=== PATIENT | male | born 1980 | race Caucasian/White ===

== ENCOUNTER 2021-08-12 18:51 | Emergency (ER) | payer OTHER, SELFPAY ==
[~2021-08-12] VITALS: Ht 188 cm; Wt 84.5 kg
[2021-08-12] MEDS ORDERED: NAPR220C14 PO (19:22)
[2021-08-12] MEDS ORDERED: NS 1,000 ML IV ONE (22:30)
[2021-08-12] MEDS ORDERED: CLINDAMYCIN 900 MG in IV 1 EA IV ONE (22:30)
[2021-08-12] MEDS ORDERED: ISOVUE-370 76% 100ML VIAL As Ordered ONE (22:52)
[2021-08-12 23:15] LABS: BASO # 0.1 10^3/uL (0.0-0.2); BASO % 0.4 % (0.0-1.0); EOS # 0.2 10^3/uL (0.0-0.5); EOS % 0.9 % (0.0-3.0); HEMATOCRIT 41.4 % (42.0-52.0); HEMOGLOBIN 13.2 g/dl (13.5-17.5); LYMPH % 10.9 % (24.0-44.0); MEAN CORPUSCULAR HEMOGLOBIN 29.3 pg (27.0-33.0); MEAN CORPUSCULAR HGB CONC 31.9 g/dl (32.0-36.5); MONO # 1.7 10^3/uL (0.0-0.8); MONO % 9.3 % (2.0-8.0); NEUTROPHILS # 13.8 10^3/uL (1.5-8.5); NEUTROPHILS % 76.2 % (36.0-66.0); PLATELET COUNT, AUTOMATED 338 10^3/uL (150-450); WHITE BLOOD COUNT 18.1 10^3/uL (4.0-10.0)
--- OUTSIDE RECORDS SUMMARY | 2021-08-12 23:24 | CCD ---
Author Author [facility] Organization [facility] Address Unknown Phone Unavailable Support Name Relationship Address Phone UE Next Of Kin Unknown Unavailable BRANDY FLOYD Next Of Kin [address] [place] [address] [facility] [address] Next [place] [address] [place] [address] ISAMARSHASTA MUNOZ Next Of Kin [address] , [place] ROSARIO JOHNS Next Of Kin Unknown Re-disclosure Warning The records that you are about to access may contain information from federally-assisted alcohol or drug abuse programs. If such information is present, then the following federally mandated warning applies: This information has been disclosed to you from records protected by federal confidentiality rules (42 CFR part 2). The federal rules prohibit you from making any further disclosure of this information unless further disclosure is expressly permitted by the written consent of the person to whom it pertains or as otherwise permitted by 42 CFR part 2. A general authorization for the release of medical or other information is NOT sufficient for this purpose. The Federal rules restrict any use of the information to criminally investigate or prosecute any alcohol or drug abuse patient.The records that you are about to access may contain highly sensitive health information, the redisclosure of which is protected by Article 27-F of the [facility] Public Health law. If you continue you may have access to information: Regarding HIV / AIDS; Provided by facilities licensed or operated by the [facility] Office of Mental Health; or Provided by the [facility] Office for People With Developmental Disabilities. If such information is present, then the following [facility] mandated warning applies: This information has been disclosed to you from confidential records which are protected by state law. State law prohibits you from making any further disclosure of this information without the specific written consent of the person to whom it pertains, or as otherwise permitted by law. Any unauthorized further disclosure in violation of state law may result in a fine or alf sentence or both. A general authorization for the release of medical or other information is NOT sufficient authorization for further disc losure. Medications No Information Insurance Providers Payer name Policy type / Coverage type Policy ID Covered democrat ID Covered democrat's relationship to jung Policy Jung Plan Information FOR LIFE [id number] DO NOT USE [id number] Problems, Conditions, and Diagnoses No Information Surgeries/Procedures No Information Results No Information Social History No Information
--- NOTE | 2021-08-13 00:40 | REPVR ---
PROCEDURE INFORMATION: Exam: CT Pelvis With Contrast Exam date and time: 08/12/2021 12:03 AM Age: 40 years old Clinical indication: Abdominal pain; Right lower quadrant; Additional info: Abscess right groin TECHNIQUE: Imaging protocol: Computed tomography images of the pelvis with intravenous contrast. Radiation optimization: All CT scans at this facility use at least one of these dose optimization techniques: automated exposure control; mA and/or kV adjustment per patient size (includes targeted exams where dose is matched to clinical indication); or iterative reconstruction. Contrast material: ISO 370; Contrast volume: 100 ml; Contrast route: INTRAVENOUS (IV); COMPARISON: No relevant prior studies available. FINDINGS: Stomach and bowel: Visualized small bowel and colon are unremarkable. Appendix: No evidence of appendicitis. Intraperitoneal space: Unremarkable. No free air. No significant fluid collection. Lymph nodes: Adjacent fat stranding and numerous small lymph nodes. Urinary bladder: Normal. No mass. Reproductive: Normal as visualized. Bones/joints: Unremarkable. No acute fracture. No dislocation. Soft tissues: Right groin rim enhancing fluid collection measuring 5.6 x 3 x 7.4 cm. Evidence for abscess. IMPRESSION: Right groin rim enhancing fluid collection measuring 5.6 x 3 x 7.4 cm. Evidence for abscess. Adjacent fat stranding and numerous small lymph nodes. Electronically signed by: Luis Aldana On 08/13/2021 00:40:00 AM
[2021-08-13] MEDS ORDERED: LIDOCAINE 1% MDV 20ML VIAL SC ONE (01:05)
[2021-08-13] MEDS ORDERED: DERMABOND TOPICAL SKIN ADHESIVE TOP ONE (01:50)
[2021-08-13] MEDS ORDERED: HYDR25OI TOP (02:02)
[2021-08-13] MEDS ORDERED: CEPH500C PO (02:02)
[2021-08-13 02:31] VITALS: BP 116/58
[2021-08-14] MEDS ORDERED: CEPH500C PO (20:29)
== END 2021-08-13 02:41 | disposition home or self-care (01) ==
LOC: M ED 18:51
DX: M79.81 Nontraumatic hematoma of soft tissue (principal); L02.214 Cutaneous abscess of groin; F17.200 Nicotine dependence, unspecified, uncomplicated; Z91.040 Latex allergy status
CPT/HCPCS: 10060; 72193; 80047; 83605; 85025; 87040; 96361; 96365; 99284; Q9967

== ENCOUNTER 2021-08-14 16:56 | Inpatient (IN) | payer OTHER, SELFPAY ==
[~2021-08-14] VITALS: Ht 188 cm; Wt 84.5 kg
[~2021-08-14 16:56] MED LIST: CEPH500C PO; HYDR25OI TOP; NAPR220C14 PO
--- OUTSIDE RECORDS SUMMARY | 2021-08-14 17:07 | CCD ---
Author Author [facility] Organization [facility] Address Unknown Phone Unavailable Support Name Relationship Address Phone UE Next Of Kin Unknown Unavailable BRANDY FLOYD Next Of Kin [address] [place] [address] [facility] [address] Next Of [address] [place] [address] ISAMARSHASTA MUNOZ Next Of Kin [address] , [place] UN ROSARIO JOHNS Next Of Kin Unknown [...] is protected by Article 27-F of the [facility] Public Health law. If you continue you may have access to information: Regarding HIV / AIDS; Provided by facilities licensed or operated by the [facility] Office of Mental Health; or Provided by the [facility] Office for People With Developmental Disabilities. If such information is present, then the following [facility] mandated warning applies: This information has been [...] law may result in a fine or senior care sentence or both. A general authorization for the release of medical or other information is NOT sufficient authorization for further disc losure. Medications No Information Insurance Providers Payer name Policy type / Coverage type Policy ID Covered constitution party ID Covered constitution party's relationship to jung Policy Jung Plan Information FOR LIFE [id number] DO NOT USE [id number] Problems, Conditions, and Diagnoses No Information Surgeries/Procedures No Information Results No Information Social History No Information
[2021-08-14 18:21] LABS: BASO # 0.1 10^3/uL (0.0-0.2); BASO % 0.3 % (0.0-1.0); EOS # 0.2 10^3/uL (0.0-0.5); EOS % 0.9 % (0.0-3.0); HEMATOCRIT 38.9 % (42.0-52.0); HEMOGLOBIN 12.6 g/dl (13.5-17.5); LYMPH # 2.3 10^3/uL (1.5-5.0); LYMPH % 11.2 % (24.0-44.0); MEAN CORPUSCULAR HEMOGLOBIN 29.5 pg (27.0-33.0); MEAN CORPUSCULAR HGB CONC 32.4 g/dl (32.0-36.5); MEAN CORPUSCULAR VOLUME 91.1 fl (80.0-96.0); NEUTROPHILS # 15.6 10^3/uL (1.5-8.5); NEUTROPHILS % 76.6 % (36.0-66.0); PLATELET COUNT, AUTOMATED 385 10^3/uL (150-450); RED BLOOD COUNT 4.27 10^6/uL (4.30-6.10); WHITE BLOOD COUNT 20.3 10^3/uL (4.0-10.0)
[2021-08-14 18:47] LABS: ALBUMIN 2.8 GM/DL (3.2-5.2); ALT/SGPT 42 U/L (12-78); BILIRUBIN,DIRECT 0.3 MG/DL (0.0-0.2); BILIRUBIN,TOTAL 1.1 MG/DL (0.2-1.0); BLOOD UREA NITROGEN 12 MG/DL (7-18); CALCIUM LEVEL 9.1 MG/DL (8.5-10.1); CARBON DIOXIDE LEVEL 28 MEQ/L (21-32); CHLORIDE LEVEL 102 MEQ/L (98-107); CREATININE FOR GFR 0.99 MG/DL (0.70-1.30); GLOMERULAR FILTRATION RATE > 60.0 (>60); GLUCOSE, FASTING 105 MG/DL (70-100); POTASSIUM SERUM 4.3 MEQ/L (3.5-5.1); SODIUM LEVEL 135 MEQ/L (136-145); TOTAL PROTEIN 8.4 GM/DL (6.4-8.2)
[2021-08-14 18:58] LABS: ERYTHROCYTE SEDIMENTATION RATE 98 mm/hr (0-15)
[2021-08-14 20:10] LABS: RSV AMPLIFICATION NEGATIVE (NEGATIVE)
[2021-08-14] MEDS ORDERED: CLINDAMYCIN 900 MG in IV 1 EA IV ONE (20:20)
[2021-08-14] MEDS ORDERED: NS 1,000 ML IV ONE (20:20)
[2021-08-14] MEDS ORDERED: CEPH500C PO (20:29)
[2021-08-14] MEDS ORDERED: HOME MED LIST COMPLETE! XX SCH (20:30)
--- NOTE | 2021-08-14 20:42 | REPVR ---
PROCEDURE INFORMATION: Exam: US Scrotum Exam date and time: 08/14/2021 8:27 PM Age: 40 years old Clinical indication: Groin pain; Additional info: Pain and swelling R TECHNIQUE: Imaging protocol: Real-time ultrasound of the scrotum and contents with color Doppler and image documentation. COMPARISON: CT Pelvis with contrast 08/12/2021 11:45 PM FINDINGS: Right testicle: The right testis is homogeneous and measures 4.4 x 2.4 x 2.8 cm. There is normal color flow and normal arterial and venous Doppler waveforms. Left testicle: The left testis is homogeneous and measures 4.3 x 2.3 x 2.9 cm. There is normal color flow and normal arterial and venous Doppler waveforms. Epididymides: The right epididymal head measures 15 mm and the left measures 7 mm. Scrotum: Scrotal skin thickening, right greater than left measuring 10 mm on the right. IMPRESSION: 1. Scrotal skin thickening, right greater than left measuring up to 10 mm. 2. Otherwise negative testicular sonogram with normal bilateral testicular blood flow. No torsion. Electronically signed by: Deniz Alcocer On 08/14/2021 20:42:05 PM
--- NOTE | 2021-08-14 20:45 | REPVR ---
PROCEDURE INFORMATION: Exam: US Pelvis Limited, Transabdominal, Soft tissue Exam date and time: 08/14/2021 8:27 PM Age: 40 years old Clinical indication: Pelvic pain; Additional info: Pain and swelling R TECHNIQUE: Imaging protocol: Real-time transabdominal pelvic ultrasound with image documentation. Limited exam. Exam focused on the soft tissue. COMPARISON: CT Pelvis with contrast 08/12/2021 11:45 PM FINDINGS: Soft tissues: Edematous subcutaneous tissues in the right inguinal region. There is a complex collection in the right inguinal region measuring 5.1 x 4.0 x 7.2 cm. Hyperemia is noted in the area. Lymph nodes: Right inguinal nodes measuring up to 16 x 16 x 10 mm. IMPRESSION: Edematous subcutaneous tissues with hyperemia and complex collection consistent with abscess measuring 5.1 x 4.0 x 7.2 cm. Electronically signed by: Deniz Alcocer On 08/14/2021 20:45:18 PM
[2021-08-14] MEDS ORDERED: MAALOX 30 ML SUSP *UDC PO PRN (21:30)
[2021-08-14] MEDS ORDERED: MOM 30ML SUSPENSION UDC PO PRN (21:30)
[2021-08-14] MEDS ORDERED: VANCOMYCIN HCL 1,000 MG, VIAL MATE ADAPTER 1 EACH in NS 250 ML IV SCH (21:45)
[2021-08-14] MEDS ORDERED: NICOTINE 7 MG/24 HR TRANSDERMAL TD ONE (21:45)
--- NOTE | 2021-08-14 21:51 | HPEPDOC ---
[facility] Medical History & Physical Date of Admission Aug 14, 2021 Date of Service: Aug 14, 2021 History and Physical CHIEF COMPLAINT: Right groin swelling HISTORY OF PRESENT ILLNESS: 40-year-old male with a history of nicotine dependence presents to the ER with worsening swelling in his right groin. Patient was last seen in the ER on 08/12/2021 for the same complaint. An attempt was made to drain the suspected collection which produced mild small to moderate amount of blood. Patient was started on Keflex and sent for follow-up with Dr. Judd. Patient was seen earlier today, and presented to the ER from the clinic with a note from . Concern for malignancy at the site of the swelling, questionable absence of the testicle on the right side. Recommending US guided biopsy. Ultrasound imaging of the pelvis and scrotum shows a complex collection consistent with abscess measuring 5.1 x 4.0 x 7.2 cm. 2 testes are seen in the scrotum with a normal arterial and venous Doppler waveforms. Patient had also received a CT abdomen pelvis with IV contrast on 08/12/2021 which revealed a fluid collection concerning for abscess measuring 5.6 x 3 x 7.4 cm. At this time patient is afebrile, but has worsening leukocytosis of 20.3. Elevated ESR at 98. Elevated CRP of 21.9. Elevated lactic acid of 2.1. Grisel ent was started empiric IV clindamycin in the ER. Dr. Boateng was consulted and will be seeing the patient in the morning. Patient will be admitted to hospitalist service for further work-up. PAST MEDICAL HISTORY: Nicotine dependence PAST SURGICAL HISTORY: Reports nor prior surgical history SOCIAL HISTORY: marine oil terminal superintendent nicotine dependence, 2 PPD. FAMILY HISTORY: patient is adopted, unaware of an prior family history ALLERGIES: Please see below. REVIEW OF SYSTEMS: 10 point ROS conducted, relevant findings are noted in HPI. HOME MEDICATIONS: Please see below. PHYSICAL EXAMINATION: VITAL SIGNS: please see below General: NAD, comfortable HEENT: PERRLA, EOMI, sclerae clear. Poor dentition. Neck: supple, normal ROM, no JVD Respiratory: lungs CTAB, no wheeze, no rales, no crackles CVS: RRR, normal S1, S2, no murmurs Abdo: soft, no masses, no hepatosplenomegaly, BS+, no rebound tenderness. Large (~10 cm in diameter), indurated swelling of R groin overlying R base of penis, lateral suprapubic skin. Extremities: no edema, pulses 2+, no cyanosis. MSK: no joint deformities, normal ROM Neuro: moving all 4 extremities. Psych: calm, cooperative, AAO x 3 LABORATORY DATA: See below. IMAGING: Pelvis US (08/14/21): Edematous subcutaneous tissues with hyperemia and complex collection consistent with abscess measuring 5.1 x 4.0 x 7.2 cm. Scrotal US (08/14/21): 1. Scrotal skin thickening, right greater than left measuring up to 10 mm. 2. Otherwise negative testicular sonogram with normal bilateral testicular blood flow. No torsion MICROBIOLOGY: Please see below. ASSESSMENT: 40 yo M presented with worsening R groin swelling, s/p unsuccessful I&D. Was seen in General Surgery clinic by Dr. Judd, sent to ER for additional workup, including US guide biopsy. Dr. Jackson consulted on admission. S/p empiric clindamycin. #R groin swelling likely abscess, some concern for malignancy - s/p attempted I&D x 2 (08/12, 08/14), including general surgery clinic - note from Dr. Judd, concern for malignancy, needs US guided biopsy. - Report of absent R testicle, noted to have 2 testes on scrotal US with normal doppler flow - reports unprotected sexual intercourse, has concerns for STDs - check Chlam, GC, Tric, along with HIV and hep panel. Patient consents. - s/p IV clindamycin in ER. Will proceed with IV vancomycin and Zosyn - Consult placed with Dr. Jackson, will d/w Dr. Judd. - Patient made NPO in AM #Palmar and plantar rash - patient concern regarding unprotected sexual encounters - check syphilis RPR #Nicotine dependence - nicotine patch Dispo: admission expected to span 2 midnights. Vital Signs Vital Signs Date Time Temp Pulse Resp B/P (MAP) Pulse Ox O2 Delivery O2 Flow Rate FiO2 08/14/21 16:56 97.0 68 18 101/62 (75) 99 Room Air Laboratory Data Labs 24H Laboratory Tests 2 08/14/21 18:00: Anion Gap 5L, Glomerular Filtration Rate > 60.0, Calcium Level 9.1, Total Bilirubin 1.1H, Direct Bilirubin 0.3H, Aspartate Amino Transf (AST/SGOT) 26, Alanine Aminotransferase (ALT/SGPT) 42, Alkaline Phosphatase 139H, C-Reactive Protein, Quantitative 21.90H, Total Protein 8.4H, Albumin 2.8L, Albumin/Globulin Ratio 0.5 08/14/21 18:01: Immature Granulocyte % (Auto) 1.0, Neutrophils (%) (Auto) 76.6H, Lymphocytes (%) (Auto) 11.2L, Monocytes (%) (Auto) 10.0H, Eosinophils (%) (Auto) 0.9, Basophils (%) (Auto) 0.3, Neutrophils # (Auto) 15.6H, Lymphocytes # (Auto) 2.3, Monocytes # (Auto) 2.0H, Eosinophils # (Auto) 0.2, Basophils # (Auto) 0.1, Nucleated Red Blood Cells % (auto) 0.0, Erythrocyte Sedimentation Rate 98H 08/14/21 19:13: Coronavirus (COVID-19)(PCR) NEGATIVE, Influenza Type A (RT-PCR) NEGATIVE, Influenza Type B (RT-PCR) NEGATIVE, Respiratory Syncytial Virus (PCR) NEGATIVE 08/14/21 19:32: Lactic Acid Level 2.1*H CBC/BMP Laboratory Tests 08/14/21 18:00 08/14/21 18:01 Microbiology Microbiology 08/14/21 Blood Culture, Received Pending 08/14/21 Blood Culture, Received Pending Home Medications Scheduled Cefdinir (Cefdinir) 300 Mg Capsule, 1 CAP PO BID Naproxen Sodium (Aleve) 220 Mg Capsule, 440 MG PO BID Allergies Coded Allergies: latex (Verified Allergy, Unknown, 08/12/21) A-FIB/CHADSVASC A-FIB History Current/History of A-Fib/PAF?: No DANIELLA TITUS MD Aug 14, 2021 21:51
--- OUTSIDE RECORDS SUMMARY | 2021-08-14 21:59 | CCD ---
Author Author [facility] Organization [facility] Address Unknown Phone Unavailable Support Name Relationship Address Phone UE Next Of Kin Unknown Unavailable BRANDY FLOYD Next Of Kin [address] [place] [address] [facility] E[address] Next Of Kin [address] [place] [address] ISAMARSHASTA MUNOZ Next Of Kin [address] , [place] UN ROSARIO JOHNS Next Of Kin Unknown [...] is protected by Article 27-F of the [facility] Public Health law. If you continue you may have access to information: Regarding HIV / AIDS; Provided by facilities licensed or operated by the [facility] Office of Mental Health; or Provided by the [facility] Office for People With Developmental Disabilities. If such information is present, then the following [facility] mandated warning applies: This information [...] may result in a fine or senior living sentence or both. A general authorization for the release of medical or other information is NOT sufficient authorization for further disc losure. Medications No Information Insurance Providers Payer name Policy type / Coverage type Policy ID Covered democrat ID Covered democrat's relationship to jung Policy Jung Plan Information FOR LIFE [id number] DO NOT USE [id number] Problems, Conditions, and Diagnoses No Information Surgeries/Procedures No Information Results No Information Social History No Information
[2021-08-14] MEDS ORDERED: VANCOMYCIN HCL 1,000 MG, VIAL MATE ADAPTER 1 EACH in NS 250 ML IV ONE ×2 (22:00→23:00)
[2021-08-15 01:00] VITALS: BP 135/68
[2021-08-15] MEDS: ACETAMINOPHEN TAB 650MG DOSE (2X325MG) PO PRN ×3 (01:28→14:45)
[2021-08-15] MEDS: PIPERACILLIN/TAZOBACTAM SOD 4.5 GM in D5W MINI-BAG PLUS 50 ML IV SCH ×4 (01:54→20:03)
[2021-08-15 06:00] VITALS: BP 106/62
[2021-08-15 07:14] LABS: ALT/SGPT 40 U/L (12-78); BILIRUBIN,TOTAL 0.7 MG/DL (0.2-1.0); BLOOD UREA NITROGEN 13 MG/DL (7-18); CALCIUM LEVEL 8.4 MG/DL (8.5-10.1); CARBON DIOXIDE LEVEL 28 MEQ/L (21-32); CHLORIDE LEVEL 106 MEQ/L (98-107); CREATININE FOR GFR 0.91 MG/DL (0.70-1.30); GLOMERULAR FILTRATION RATE > 60.0 (>60); GLUCOSE, FASTING 117 MG/DL (70-100); SODIUM LEVEL 137 MEQ/L (136-145); TOTAL PROTEIN 7.4 GM/DL (6.4-8.2)
[2021-08-15 07:15] LABS: MAGNESIUM LEVEL 2.1 MG/DL (1.8-2.4)
[2021-08-15 07:19] LABS: BASO # 0.1 10^3/uL (0.0-0.2); BASO % 0.3 % (0.0-1.0); EOS # 0.2 10^3/uL (0.0-0.5); EOS % 1.5 % (0.0-3.0); HEMATOCRIT 32.3 % (42.0-52.0); LYMPH # 2.1 10^3/uL (1.5-5.0); LYMPH % 13.4 % (24.0-44.0); MEAN CORPUSCULAR HEMOGLOBIN 29.7 pg (27.0-33.0); MEAN CORPUSCULAR HGB CONC 32.2 g/dl (32.0-36.5); MEAN CORPUSCULAR VOLUME 92.3 fl (80.0-96.0); MONO # 1.7 10^3/uL (0.0-0.8); MONO % 11.3 % (2.0-8.0); NEUTROPHILS # 11.2 10^3/uL (1.5-8.5); NEUTROPHILS % 72.8 % (36.0-66.0); PLATELET COUNT, AUTOMATED 337 10^3/uL (150-450); WHITE BLOOD COUNT 15.3 10^3/uL (4.0-10.0)
[2021-08-15 07:30] LABS: HEMOGLOBIN 10.4 g/dl (13.5-17.5)
[2021-08-15] MEDS: VANCOMYCIN HCL 750 MG, VIAL MATE ADAPTER 1 EACH in NS 250 ML IV SCH ×2 (09:28→17:07)
--- NOTE | 2021-08-15 09:51 | IPNPDOC ---
Text Note Date of Service The patient was seen on 08/15/21. NOTE General surgery Dr. Judd The patient is a 40-year-old male admitted with right groin swelling, abscess and some concern for malignancy. The patient states the right groin area is still very tender this morning. Temperature 97.6, T-max 101.1, heart rate 62, respiratory rate 21, blood pressure 106/62, 100% room air. The patient is awake and alert, resting in bed, no acute distress. Lungs are clear to auscultation S1-S2 regular rate rhythm Abdomen is soft, nontender, nondistended Right groin swelling noted, erythema has not extended beyond the areas of demarcation, 2 fluid-filled blisters are noted, tender with palpation, warm to touch. Pelvic CT 08/13/21 Right groin rim enhancing fluid collection measuring 5.6 x 3 x 7.4 cm. Evidence for abscess. Adjacent fat stranding and numerous small lymph nodes. Pelvis US 08/14/21 Edematous subcutaneous tissues with hyperemia and complex collection consistent with abscess measuring 5.1 x 4.0 x 7.2 cm. Scrotal US 08/14/21 1. Scrotal skin thickening, right greater than left measuring up to 10 mm. 2. Otherwise negative testicular sonogram with normal bilateral testicular blood flow. No torsion Labs this morning indicate WBC 15.3, this is decreased from 20.3 on admission. Hemoglobin 10.4, platelets 337. ESR on admission 98. Follow-up lactic acid 0.7. CRP 16.7, compared with 21.9 on admission. Assessment/plan Right groin swelling, abscess and some concern for malignancy. The patient is reviewed as per Dr. Judd. Continue with IV antibiotics as per hospitalist Plan for ultrasound-guided drainage today, culture and GS, will also send for cytology. Would recommend evaluation as per urology as well. This is relayed to hospitalist. Continue to monitor VS,Fishbone, I+O VS, Fishbone, I+O Laboratory Tests 08/14/21 18:00 08/14/21 18:01 08/15/21 06:34 Vital Signs Date Time Temp Pulse Resp B/P (MAP) Pulse Ox O2 Delivery O2 Flow Rate FiO2 08/15/21 06:00 97.6 62 21 106/62 (77) 100 Room Air I&O- Last 24 Hours up to 6 AM 08/15/21 05:59 Intake Total 0 ml Balance 0 ml Cathryn Echeverria Aug 15, 2021 09:51
[2021-08-15 10:04] LABS: HEPATITIS B CORE ANTIBODY IGM NEGATIVE (NEGATIVE); HEPATITIS B SURFACE ANTIGEN NEGATIVE (NEGATIVE); HEPATITIS C VIRUS ABY INDEX 0.1 INDEX (<0.8); HIV 1&2 SCREEN CENTAUR NEGATIVE (NEGATIVE)
[2021-08-15] MEDS: VANCOMYCIN HCL 500 MG in D5W MINI-BAG PLUS 100 ML IV SCH ×2 (10:39→18:23)
--- NOTE | 2021-08-15 10:55 | IPNPDOC ---
Subjective Date Seen The patient was seen on 08/15/21. Subjective Chief Complaint/HPI Continues to have pain and swelling at the right groin. No fever or chills. No abdominal complaints Objective Physical Examination General Exam: Positive: Alert, Cooperative, No Acute Distress Eye Exam: Positive: PERRLA, Conjunctiva & lids normal, EOMI; Negative: Sclera icteric Chest Exam: Positive: Clear to auscultation, Normal air movement Heart Exam: Positive: Rate Normal, Regular Rhythm, Normal S1, Normal S2; Negative: Murmurs, Rubs Abdomen Exam: Positive: Normal bowel sounds, Soft, Mass (At the right groin); Negative: Tenderness, Hepatospenomegaly Extremity Exam: Positive: Normal pulses; Negative: Clubbing, Cyanosis, Edema Psych Exam: Positive: Memory Intact, Oriented x 3 Assessment /Plan Assessment 40 yo M presented with worsening R groin swelling started about 10 days ago, s/p unsuccessful I&D in the ED and general surgery clinic. Was seen in General Surgery clinic by Dr. Judd, sent to ER for additional workup, including US guide biopsy. R groin swelling likely abscess, some concern for malignancy s/p attempted I&D x 2 (08/12, 08/14), including general surgery clinic notes from Dr. Judd, concern for malignancy, needs US guided biopsy. Urology consulted reports unprotected sexual intercourse, has concerns for STDs Chlam, GC, Tric, along with HIV and hep panel ordered We will continue with Vanco and Zosyn MRSA PCR positive Palmar and plantar rash syphilis RPR Plan/VTE VTE Prophylaxis Ordered?: Yes VS, I&O, 24H, Maobone Vital Signs/I&O Vital Signs Date Time Temp Pulse Resp B/P (MAP) Pulse Ox O2 Delivery O2 Flow Rate FiO2 08/15/21 06:00 97.6 62 21 106/62 (77) 100 Room Air I&O- Last 24 Hours up to 6 AM 08/15/21 05:59 Intake Total 0 ml Balance 0 ml Laboratory Data 24H LABS Laboratory Tests 2 08/14/21 18:00: Anion Gap 5L, Glomerular Filtration Rate > 60.0, Calcium Level 9.1, Total Shawn irubin 1.1H, Direct Bilirubin 0.3H, Aspartate Amino Transf (AST/SGOT) 26, Alanine Aminotransferase (ALT/SGPT) 42, Alkaline Phosphatase 139H, C-Reactive Protein, Quantitative 21.90H, Total Protein 8.4H, Albumin 2.8L, Albumin/Globulin Ratio 0.5 08/14/21 18:01: Immature Granulocyte % (Auto) 1.0, Neutrophils (%) (Auto) 76.6H, Lymphocytes (%) (Auto) 11.2L, Monocytes (%) (Auto) 10.0H, Eosinophils (%) (Auto) 0.9, Basophils (%) (Auto) 0.3, Neutrophils # (Auto) 15.6H, Lymphocytes # (Auto) 2.3, Monocytes # (Auto) 2.0H, Eosinophils # (Auto) 0.2, Basophils # (Auto) 0.1, Nucleated Red Blood Cells % (auto) 0.0, Erythrocyte Sedimentation Rate 98H 08/14/21 19:13: Coronavirus (COVID-19)(PCR) NEGATIVE, Influenza Type A (RT-PCR) NEGATIVE, Influenza Type B (RT-PCR) NEGATIVE, Respiratory Syncytial Virus (PCR) NEGATIVE 08/14/21 19:32: Lactic Acid Level 2.1*H 08/15/21 05:34: Methicillin-Resist S.aureus DNA PCR DETECTEDA 08/15/21 06:34: Immature Granulocyte % (Auto) 0.7, Neutrophils (%) (Auto) 72.8H, Lymphocytes (%) (Auto) 13.4L, Monocytes (%) (Auto) 11.3H, Eosinophils (%) (Auto) 1.5, Basophils (%) (Auto) 0.3, Neutrophils # (Auto) 11.2H, Lymphocytes # (Auto) 2.1, Monocytes # (Auto) 1.7H, Eosinophils # (Auto) 0.2, Basophils # (Auto) 0.1, Nucleated Red Blood Cells % (auto) 0.0, Anion Gap 3L, Glomerular Filtration Rate > 60.0, Lactic Acid Followup at 4 Hours 0.7, Calcium Level 8.4L, Magnesium Level 2.1, Total Bilirubin 0.7, Aspartate Amino Transf (AST/SGOT) 28, Alanine Aminotransferase (ALT/SGPT) 40, Alkaline Phosphatase 114, C-Reactive Protein, Quantitative 16.70H, Total Protein 7.4, Albumin 2.0#L, Albumin/Globulin Ratio 0.4, Syphilis Serology REACTIVEA, Hepatitis A IgM Antibody NEGATIVE, Hepatitis B Surface Antigen NEGATIVE, Hepatitis B Core IgM Antibody NEGATIVE, Hepatitis C Antibody Index 0.1, HIV Antigen/Antibody Combo Qual NEGATIVE CBC/BMP Laboratory Tests 08/14/21 18:00 08/14/21 18:01 08/15/21 06:34 Microbiology Microbiology 08/14/21 Blood Culture, Received Pending 08/14/21 Blood Culture, Received Pending Yahaira Betancourt MD Aug 15, 2021 10:55
[2021-08-15] MEDS ORDERED: LIDOCAINE 1% MDV 20ML VIAL As Ordered ONE (13:14)
--- NOTE | 2021-08-15 13:57 | SMCUROLCON ---
Urology Consultation General Date of Consultation 08/15/21 Reason For Consultation asked to see re right groin abscess History of Present Illness Seen in ER for suspected right groin abscess 08/12/21. Attempt at I&D. Sent home on antibiotic. Returned to ER with worsening s/s. Ultimately underwent ct pelvis, scrotal u/s and pelvic u/s. Imaging shows abscess right groin. No involvement of scrotum. Pt has 2 testes. Wbc elevated though decreasing. Blood cx's pending. Creatinine normal. On vanc and Zosyn. Plan, as per chart, is percutaneous drainage by IR. Past Medical History Medical History unremarkable Surgical Hstory denies past surgeries Family History Family History adopted Social History * Smoker: current smoker Drugs: denies Medications Current Medications Current Medications Medications (Trade) Dose Ordered Sig/Alvin Route PRN Reason Start Time Stop Time Status Last Admin Dose Admin Acetaminophen (Tylenol Tab) 650 mg Q4H PRN PO MILD PAIN or TEMP > 101 08/14/21 21:30 08/15/21 08:20 Al Hydrox/Mg Hydrox/Simethicone (Mylanta) 30 ml DAILY PRN PO DYSPEPSIA 08/14/21 21:30 Home Med (Home Med List Complete!) ASDIRECTED XX 08/14/21 20:30 08/14/21 20:35 DC Magnesium Hydroxide (Milk Of Magnesia) 30 ml DAILY PRN PO CONSTIPATION 08/14/21 21:30 Piperacillin Sod/ Tazobactam Sod 4.5 gm/Dextrose 50 ml @ 50 mls/hr Q6H IV 08/15/21 02:00 08/15/21 08:11 Vancomycin HCl 500 mg/Dextrose 110 ml @ 110 mls/hr Q8H IV 08/15/21 10:00 08/15/21 10:39 Vancomycin HCl 750 mg/IV Miscellaneous Supplies 1 each/ Sodium Chloride 275 ml @ 275 mls/hr Q8H IV 08/15/21 09:00 08/15/21 09:28 Vancomycin HCl 1000 mg/IV Miscellaneous Supplies 1 each/ Sodium Chloride 270 ml @ 270 mls/hr Q12H IV 08/14/21 21:45 08/14/21 21:57 DC Allergies Allergies: Coded Allergies: latex (Verified Allergy, Unknown, 08/12/21) Review of Systems General: Denies: Chills, Night Sweats Constitutional: Denies: Chills Eyes: Denies: Vision change ENT: Denies: Head Aches Skin: Denies: Rash Pulmonary: Denies: Cough Cardiovascular: Denies Chest Pain Gastrointestinal: Denies: Nausea Genitourinary: Denies: Dysuria Hematologic: Denies: Bruising Endocrine: Denies: Polydipsia Musculoskeletal: Denies: Neck Pain Neurological: Denies: Weakness Psych: Reports: Mood Normal Physical Examination General Exam: No Acute Distress EYE EXAM: Conjunctiva & lids normal ENT EXAM: Other ENT (poor dentition) Neck Exam: Supple Chest Exam: Clear to auscultation Heart Exam: Rate Normal Abdomen Exam: Soft Male Exam: Normal Genital Exam; No: Lesions Male Exam penis circ'd and without lesions, no discharge, meatus normal, testes and epi's normal, no epididymo-orchitis, no scrotal skin lesions indurated tender erythematous area right groin that now has a drain in it, pt states it's much better now that it has been drained no ing lymphadenopathy belly soft and nontender Extremity Exam: No: Cyanosis Skin Exam: Nl turgor and temperature Neuro Exam: Normal Speech Psych Exam: Mental status NL Vital Signs/I&O Vital Signs Date Time Temp Pulse Resp B/P (MAP) Pulse Ox O2 Delivery O2 Flow Rate FiO2 08/15/21 06:00 97.6 62 21 106/62 (77) 100 Room Air I&O- Last 24 Hours up to 6 AM 08/15/21 05:59 Intake Total 0 ml Balance 0 ml Laboratory Data 24H Labs Laboratory Tests 2 08/14/21 18:00: Anion Gap 5L, Glomerular Filtration Rate > 60.0, Calcium Level 9.1, Total Bilirubin 1.1H, Direct Bilirubin 0.3H, Aspartate Amino Transf (AST/SGOT) 26, Alanine Aminotransferase (ALT/SGPT) 42, Alkaline Phosphatase 139H, C-Reactive Protein, Quantitative 21.90H, Total Protein 8.4H, Albumin 2.8L, Albumin/Globulin Ratio 0.5 08/14/21 18:01: Immature Granulocyte % (Auto) 1.0, Neutrophils (%) (Auto) 76.6H, Lymphocytes (%) (Auto) 11.2L, Monocytes (%) (Auto) 10.0H, Eosinophils (%) (Auto) 0.9, Basophils (%) (Auto) 0.3, Neutrophils # (Auto) 15.6H, Lymphocytes # (Auto) 2.3, Monocytes # (Auto) 2.0H, Eosinophils # (Auto) 0.2, Basophils # (Auto) 0.1, Nucleated Red Blood Cells % (auto) 0.0, Erythrocyte Sedimentation Rate 98H 08/14/21 19:13: Coronavirus (COVID-19)(PCR) NEGATIVE, Influenza Type A (RT-PCR) NEGATIVE, Influenza Type B (RT-PCR) NEGATIVE, Respiratory Syncytial Virus (PCR) NEGATIVE 08/14/21 19:32: Lactic Acid Level 2.1*H 08/15/21 05:34: Methicillin-Resist S.aureus DNA PCR DETECTEDA 08/15/21 06:34: Immature Granulocyte % (Auto) 0.7, Neutrophils (%) (Auto) 72.8H, Lymphocytes (%) (Auto) 13.4L, Monocytes (%) (Auto) 11.3H, Eosinophils (%) (Auto) 1.5, Basophils (%) (Auto) 0.3, Neutrophils # (Auto) 11.2H, Lymphocytes # (Auto) 2.1, Monocytes # (Auto) 1.7H, Eosinophils # (Auto) 0.2, Basophils # (Auto) 0.1, Nucleated Red Blood Cells % (auto) 0.0, Anion Gap 3L, Glomerular Filtration Rate > 60.0, Lactic Acid Followup at 4 Hours 0.7, Calcium Level 8.4L, Magnesium Level 2.1, Total Bilirubin 0.7, Aspartate Amino Transf (AST/SGOT) 28, Alanine Aminotransferase (ALT/SGPT) 40, Alkaline Phosphatase 114, C-Reactive Protein, Quantitative 16.70H, Total Protein 7.4, Albumin 2.0#L, Albumin/Globulin Ratio 0.4, Syphilis Serology REACTIVEA, Hepatitis A IgM Antibody NEGATIVE, Hepatitis B Surface Antigen NEGATIVE, Hepatitis B Core IgM Antibody NEGATIVE, Hepatitis C Antibody Index 0.1, HIV Antigen/Antibody Combo Qual NEGATIVE CBC/BMP Laboratory Tests 08/14/21 18:00 08/14/21 18:01 08/15/21 06:34 Microbiology Microbiology 08/14/21 Blood Culture, Received Pending 08/14/21 Blood Culture, Received Pending Assessment right groin abscess abscess s/p percutaneous drainage, drain placed as well treatment of abscess is straightforward larger question is why did pt develop abscess in the first place denies iv drug use, penile lesions, dysuria, hematuria, trauma to area, prior skin lesion, prior abscess, enlarged nodes does state that a similar lesion started in the left groin not long ago but resolved on its own cultures pending Plan abscess s/p drainage, drain now in place as well await cx results iv antibiotics await other testing as well hopefully no need to I&D in OR will follow thank you [phone] RAJIV SALVADOR MD Aug 15, 2021 13:57
[2021-08-15 15:00] VITALS: BP 108/61
--- NOTE | 2021-08-15 17:53 | REP ---
INDICATION: Rt groin abscess The patient has a history of right groin abscess COMPARISON: None. TECHNIQUE: The procedure was performed by ELIAZAR Mccallum, under the direct supervision of Dr. Major The risks and benefits of the procedure were explained to the patient and an informed consent was obtained both verbally and written. Directly prior to the start of the procedure a formal time-out was completed in the procedure room. The area of interest in the right groin was visualized using ultrasound guidance. The skin was prepped and draped in a sterile fashion. Nineteen ML of 1% lidocaine 10 mg/ml was used as a local anesthetic. An 10-[place] skater catheter was inserted using trocar technique. The pigtail on the skater catheter was locked into place. 80 cc of purulent blood tinged fluid was aspirated from the area. The catheter was affixed to the skin using suture silk. A gravity drainage bag was attached to the catheter. A dressing was applied over the catheter insertion site. FINDINGS: Using ultrasound guidance a 10 [place] skater catheter was inserted using trocar technique. The pigtail of the catheter was locked into place. 80 cc of purulent blood tinged fluid was aspirated from the area. The catheter was affixed to the skin using surgical silk. A gravity drainage bag was attached to the catheter. A dressing was applied over the catheter insertion site. The patient tolerated the procedure well and there were no immediate complications. After the appropriate amount of monitored convalescence, the patient was discharged from the department. IMPRESSION: Technically successful right groin drainage catheter placement yielding 80 mL of purulent blood-tinged fluid. <Electronically signed by Lucretia Garcia > 08/15/21 1722 <Electronically signed by Denilson Major > 08/15/21 [id number]
[2021-08-15 22:00] VITALS: BP 102/57
[2021-08-16] MEDS: VANCOMYCIN HCL 750 MG, VIAL MATE ADAPTER 1 EACH in NS 250 ML IV SCH ×4 (01:07→18:55)
[2021-08-16] MEDS: VANCOMYCIN HCL 500 MG in D5W MINI-BAG PLUS 100 ML IV SCH ×4 (02:10→17:00)
[2021-08-16] MEDS: PIPERACILLIN/TAZOBACTAM SOD 4.5 GM in D5W MINI-BAG PLUS 50 ML IV SCH ×4 (03:29→20:29)
[2021-08-16 06:00] VITALS: BP 118/72
[2021-08-16 10:01] LABS: BASO # 0.1 10^3/uL (0.0-0.2); BASO % 0.6 % (0.0-1.0); EOS # 0.2 10^3/uL (0.0-0.5); EOS % 2.7 % (0.0-3.0); HEMATOCRIT 29.5 % (42.0-52.0); HEMOGLOBIN 9.4 g/dl (13.5-17.5); LYMPH # 1.8 10^3/uL (1.5-5.0); LYMPH % 20.9 % (24.0-44.0); MEAN CORPUSCULAR HEMOGLOBIN 29.7 pg (27.0-33.0); MEAN CORPUSCULAR HGB CONC 31.9 g/dl (32.0-36.5); MEAN CORPUSCULAR VOLUME 93.1 fl (80.0-96.0); MONO # 0.9 10^3/uL (0.0-0.8); NEUTROPHILS # 5.6 10^3/uL (1.5-8.5); NEUTROPHILS % 65.2 % (36.0-66.0); PLATELET COUNT, AUTOMATED 320 10^3/uL (150-450); RED BLOOD COUNT 3.17 10^6/uL (4.30-6.10); WHITE BLOOD COUNT 8.6 10^3/uL (4.0-10.0)
--- NOTE | 2021-08-16 10:12 | IPNPDOC ---
Date Seen The patient was seen on 08/16/21. Progress Note pt seen today feels much better avss drain output noted area same as yesterday in terms of exam drain in place abscess cx pending vanc and Zosyn wbc decreasing syphilis serology positive, treponema pending mrsa pcr positive no new gu thoughts thank you VS, I&O, 24H, Valentina Vital Signs/I&O Vital Signs Date Time Temp Pulse Resp B/P (MAP) Pulse Ox O2 Delivery O2 Flow Rate FiO2 08/16/21 06:00 98.2 88 19 118/72 (87) 97 Room Air I&O- Last 24 Hours up to 6 AM 08/16/21 06:00 Intake Total 1020 ml Output Total 280 ml Balance 740 ml Laboratory Data 24H LABS Laboratory Tests 2 08/16/21 09:51: Immature Granulocyte % (Auto) 0.6, Neutrophils (%) (Auto) 65.2, Lymphocytes (%) (Auto) 20.9L, Monocytes (%) (Auto) 10.0H, Eosinophils (%) (Auto) 2.7, Basophils (%) (Auto) 0.6, Neutrophils # (Auto) 5.6, Lymphocytes # (Auto) 1.8, Monocytes # (Auto) 0.9H, Eosinophils # (Auto) 0.2, Basophils # (Auto) 0.1, Nucleated Red Blood Cells % (auto) 0.0 CBC/BMP Laboratory Tests 08/16/21 09:51 Microbiology Microbiology 08/15/21 Gram Stain - Final, Resulted 08/15/21 Abscess Culture, Resulted Pending 08/14/21 Blood Culture - Preliminary, Resulted No growth after 24 hours . All specim... 08/14/21 Blood Culture - Preliminary, Resulted No growth after 24 hours . All specim... RAJIV SALVADOR MD Aug 16, 2021 10:12
--- NOTE | 2021-08-16 10:28 | IPNPDOC ---
Text Note Date of Service The patient was seen on 08/16/21. NOTE Patient had percutaneous drainage of groin abscess by radiology yesterday. He reports he feels better soon as the abscess got drained. Review of his VS shows he is afebrile Exam moderate swelling at the right groin improved, minimal cellulitis, moderate hardened induration. drain with purulent serosanguenous drainage impression deep right groin abscess await culture results to adjust antibiotics otherwise he can be discharged with the drain and follow up in the clinic in one week. VS,Valentina, I+O VS, Maobone, I+O Laboratory Tests 08/16/21 09:51 Vital Signs Date Time Temp Pulse Resp B/P (MAP) Pulse Ox O2 Delivery O2 Flow Rate FiO2 08/16/21 06:00 98.2 88 19 118/72 (87) 97 Room Air I&O- Last 24 Hours up to 6 AM 08/16/21 06:00 Intake Total 1020 ml Output Total 280 ml Balance 740 ml GIL CARLSON MD Aug 16, 2021 10:28
[2021-08-16 10:29] LABS: BLOOD UREA NITROGEN 10 MG/DL (7-18); CALCIUM LEVEL 8.3 MG/DL (8.5-10.1); CARBON DIOXIDE LEVEL 30 MEQ/L (21-32); CHLORIDE LEVEL 108 MEQ/L (98-107); CREATININE FOR GFR 0.74 MG/DL (0.70-1.30); GLOMERULAR FILTRATION RATE > 60.0 (>60); GLUCOSE, FASTING 103 MG/DL (70-100); POTASSIUM SERUM 3.7 MEQ/L (3.5-5.1); SODIUM LEVEL 139 MEQ/L (136-145); VANCOMYCIN LEVEL TROUGH 14.7 UG/ML (10.0-20.0)
[2021-08-16] MEDS: ACETAMINOPHEN TAB 650MG DOSE (2X325MG) PO PRN (11:00)
--- NOTE | 2021-08-16 11:19 | IPNPDOC ---
Subjective Date Seen The patient was seen on 08/16/21. Subjective Chief Complaint/HPI Feels much better as soon as the 80 ml of pus was drained, No fever or chills. Right groin pain improved. Objective Physical Examination General Exam: Positive: Alert, Cooperative, No Acute Distress Eye Exam: Positive: PERRLA, Conjunctiva & lids normal, EOMI; Negative: Sclera icteric Chest Exam: Positive: Clear to auscultation, Normal air movement Heart Exam: Positive: Rate Normal, Regular Rhythm, Normal S1, Normal S2; Negative: Murmurs, Rubs Abdomen Exam: Positive: Normal bowel sounds, Soft, Mass (At the right groin); Negative: Tenderness, Hepatospenomegaly Extremity Exam: Positive: Normal pulses; Negative: Clubbing, Cyanosis, Edema Psych Exam: Positive: Memory Intact, Oriented x 3 Assessment /Plan Assessment 40 yo M presented with worsening R groin swelling started about 10 days ago, s/p unsuccessful I&D in the ED and general surgery clinic. Was seen in General Surgery clinic by Dr. Judd, sent to ER for additional workup, including US guide biopsy. Right groin abscess S/p US drainage on 08/15/21. Drain in place. Will go home with drain to follow up with Dr Judd in 1 week. Abscess cultures pending. Cytology negative. We will continue with Vanco and Zosyn MRSA PCR positive ppreciate surigal and urology evaluation. Palmar and plantar rash syphilis serology positive, pending treponema ab Plan/VTE VTE Prophylaxis Ordered?: Yes VS, I&O, 24H, Fishbone Vital Signs/I&O Vital Signs Date Time Temp Pulse Resp B/P (MAP) Pulse Ox O2 Delivery O2 Flow Rate FiO2 08/16/21 06:00 98.2 88 19 118/72 (87) 97 Room Air I&O- Last 24 Hours up to 6 AM 08/16/21 06:00 Intake Total 1020 ml Output Total 280 ml Balance 740 ml Laboratory Data 24H LABS Laboratory Tests 2 08/16/21 09:51: Immature Granulocyte % (Auto) 0.6, Neutrophils (%) (Auto) 65.2, Lymphocytes (%) (Auto) 20.9L, Monocytes (%) (Auto) 10.0H, Eosinophils (%) (Auto) 2.7, Basophils (%) (Auto) 0.6, Neutrophils # (Auto) 5.6, Lymphocytes # (Auto) 1.8, Monocytes # (Auto) 0.9H, Eosinophils # (Auto) 0.2, Basophils # (Auto) 0.1, Nucleated Red Blood Cells % (auto) 0.0, Anion Gap 1L, Glomerular Filtration Rate > 60.0, Calcium Level 8.3L, C-Reactive Protein, Quantitative 12.20H, Vancomycin Level Trough 14.7 CBC/BMP Laboratory Tests 08/16/21 09:51 Microbiology Microbiology 08/15/21 Gram Stain - Final, Resulted 08/15/21 Abscess Culture, Resulted Pending 08/14/21 Blood Culture - Preliminary, Resulted No growth after 24 hours . All specim... 08/14/21 Blood Culture - Preliminary, Resulted No growth after 24 hours . All specim... Yahaira Betancourt MD Aug 16, 2021 11:19
[2021-08-16 14:00] VITALS: BP 109/60
[2021-08-16 21:02] VITALS: BP 120/72
[2021-08-17] MEDS: VANCOMYCIN HCL 750 MG, VIAL MATE ADAPTER 1 EACH in NS 250 ML IV SCH (02:04)
[2021-08-17] MEDS: VANCOMYCIN HCL 500 MG in D5W MINI-BAG PLUS 100 ML IV SCH (03:55)
[2021-08-17] MEDS: PIPERACILLIN/TAZOBACTAM SOD 4.5 GM in D5W MINI-BAG PLUS 50 ML IV SCH ×4 (05:00→20:23)
[2021-08-17 06:12] VITALS: BP 119/68
[2021-08-17 08:13] LABS: BASO # 0.1 10^3/uL (0.0-0.2); BASO % 0.6 % (0.0-1.0); EOS # 0.3 10^3/uL (0.0-0.5); EOS % 3.5 % (0.0-3.0); HEMATOCRIT 32.7 % (42.0-52.0); HEMOGLOBIN 10.5 g/dl (13.5-17.5); LYMPH # 2.2 10^3/uL (1.5-5.0); LYMPH % 28.5 % (24.0-44.0); MEAN CORPUSCULAR HEMOGLOBIN 29.9 pg (27.0-33.0); MEAN CORPUSCULAR HGB CONC 32.1 g/dl (32.0-36.5); MEAN CORPUSCULAR VOLUME 93.2 fl (80.0-96.0); MONO # 0.8 10^3/uL (0.0-0.8); MONO % 9.9 % (2.0-8.0); NEUTROPHILS # 4.4 10^3/uL (1.5-8.5); PLATELET COUNT, AUTOMATED 377 10^3/uL (150-450); RED BLOOD COUNT 3.51 10^6/uL (4.30-6.10); WHITE BLOOD COUNT 7.8 10^3/uL (4.0-10.0)
[2021-08-17 08:30] LABS: BLOOD UREA NITROGEN 9 MG/DL (7-18); CALCIUM LEVEL 8.7 MG/DL (8.5-10.1); CARBON DIOXIDE LEVEL 29 MEQ/L (21-32); CHLORIDE LEVEL 107 MEQ/L (98-107); CREATININE FOR GFR 0.83 MG/DL (0.70-1.30); GLOMERULAR FILTRATION RATE > 60.0 (>60); GLUCOSE, FASTING 90 MG/DL (70-100); POTASSIUM SERUM 3.6 MEQ/L (3.5-5.1); SODIUM LEVEL 142 MEQ/L (136-145)
--- NOTE | 2021-08-17 08:50 | CR.PDOC ---
General Surgery Consultation Date of Consultation 08/17/21 History and Physical CONSULT REPORT FOR: REASON FOR CONSULTATION: HISTORY OF PRESENT ILLNESS: PAST MEDICAL HISTORY: 1. . PAST SURGICAL HISTORY: INCLUDES: 1. . PREVIOUS ANESTHESIA REACTIONS: ALLERGIES: Please see below. FAMILY HISTORY: . HOME MEDICATIONS: Please see below. REVIEW OF SYSTEMS: GENERAL: [Denies chills, reports weight gain, reports feeling febrile yesterd ay]. HEENT: [Denies blurred vision and double vision. Denies ear symptoms. Denies hoarseness]. NECK: Denies any neck pain]. CARDIOVASCULAR: [Denies chest pain and palpitations]. MUSCULOSKELETAL: [Denies arthralgias, back pain and thrombophlebitis]. SKIN: [Denies rash]. NEUROLOGIC: [Denies headache, stroke and transient ischemic attack]. PSYCHIATRIC: [Denies anxiety and depression]. ENDOCRINE: [Denies thyroid disease]. HEMATOLOGY/ONCOLOGY: [Denies bleeding or clotting disorder]. HEART: [Denies any chest pains, palpitations, paroxysmal dyspnea, orthopnea]. PULMONARY: [Denies chronic cough, dyspnea and wheezing]. GASTROINTESTINAL: [Denies rectal bleeding, family history of colon cancer, const ipation, diarrhea, dysphagia, heartburn and jaundice]. GENITOURINARY: [Denies dysuria, frequency, hematuria and nocturia]. ENDOCRINE: [Denies polydipsia, polyphagia, polyuria, heat or cold intolerance]. INFECTIOUS: [Denies any recent upper respiratory tract infection, UTI, need for use of antibiotics]. NUTRITION: [Reports good appetite]. PHYSICAL EXAMINATION: VITALS SIGNS: Please see below. GENERAL APPEARANCE:[Patient seen, laying in bed, awake, alert, and oriented. Comfortable, in no acute distress]. SKIN: [Warm and moist]. HEENT: [Normocephalic, atraumatic. [place] palpebral conjunctiva, anicteric sclerae. Lips and mucosa appear moist]. NECK: [Supple, no thyromegaly. No obvious jugular venous distention]. LUNGS: [Clear to auscultation bilaterally. No wheezing appreciated]. HEART: [No chest wall abnormalities. Regular rate and rhythm with no murmurs appreciated]. ABDOMEN: Abdomen is , soft, . [No hepatosplenomegaly. No umbilical or groin herniations, nondistended. No noticeable rebound or guarding. No grimacing with palpation. No rebound tenderness. No masses appreciated]. EXTREMITIES: [Extremities have no deformities. No edema identified] ANCILLARIES: . LABORATORY DATA: Please see below. IMAGING STUDIES: . IMPRESSION AND PLAN: . Vital Signs Vital Signs Date Time Temp Pulse Resp B/P (MAP) Pulse Ox O2 Delivery O2 Flow Rate FiO2 08/17/21 06:12 98.4 57 20 119/68 (85) 96 Room Air I&Os I&O- Last 24 Hours up to 6 AM 08/17/21 05:59 Intake Total 2280 ml Output Total 200 ml Balance 2080 ml Laboratory Data Labs 24H Laboratory Tests 2 08/16/21 09:51: Immature Granulocyte % (Auto) 0.6, Neutrophils (%) (Auto) 65.2, Lymphocytes (%) (Auto) 20.9L, Monocytes (%) (Auto) 10.0H, Eosinophils (%) (Auto) 2.7, Basophils (%) (Auto) 0.6, Neutrophils # (Auto) 5.6, Lymphocytes # (Auto) 1.8, Monocytes # (Auto) 0.9H, Eosinophils # (Auto) 0.2, Basophils # (Auto) 0.1, Nucleated Red Blood Cells % (auto) 0.0, Anion Gap 1L, Glomerular Filtration Rate > 60.0, Calcium Level 8.3L, C-Reactive Protein, Quantitative 12.20H, Vancomycin Level Trough 14.7 08/17/21 07:42: Immature Granulocyte % (Auto) 0.5, Neutrophils (%) (Auto) 57.0, Lymphocytes (%) (Auto) 28.5, Monocytes (%) (Auto) 9.9H, Eosinophils (%) (Auto) 3.5H, Basophils (%) (Auto) 0.6, Neutrophils # (Auto) 4.4, Lymphocytes # (Auto) 2.2, Monocytes # (Auto) 0.8, Eosinophils # (Auto) 0.3, Basophils # (Auto) 0.1, Nucleated Red Blood Cells % (auto) 0.0, Anion Gap 6L, Glomerular Filtration Rate > 60.0, Calcium Level 8.7 CBC/BMP Laboratory Tests 08/16/21 09:51 08/17/21 07:42 Microbiology Microbiology 08/15/21 Gram Stain - Final, Resulted 08/15/21 Abscess Culture, Resulted Pending 08/14/21 Blood Culture - Preliminary, Resulted No Growth after 48 hours. All Specime... 08/14/21 Blood Culture - Preliminary, Resulted No Growth after 48 hours. All Specime... Home Medications Scheduled Cephalexin (Cephalexin) 500 Mg Capsule, 500 MG PO QID, (Reported) Hydrocortisone (Hydrocortisone 2.5%) 28.35 Gm Oint...g., 1 APLCT TOP BID apply to affected area(s) Naproxen Sodium (Aleve) 220 Mg Capsule, 440 MG PO BID, (Reported) Allergies Coded Allergies: latex (Verified Allergy, Unknown, 08/12/21) GIL CARLSON MD Aug 17, 2021 08:50
--- NOTE | 2021-08-17 08:50 | IPNPDOC ---
Text Note Date of Service The patient was seen on 08/17/21. NOTE Patient continues to report improvement of the pain and swelling on his right groin. He has been afebrile since the drainage catheter has been placed. Vital signs stable Afebrile Examination Right groin almost flattened now, softer, moderate improvement of the soft tissue induration, not much of a cellulitis. He has a percutaneous drain placed and this is draining thick purulent serosanguineous fluid Mildly tender on palpation No associated lower extremity edema or swelling Laboratories reviewed WBC 7.8 improved from 20.3 Impression and plan Deep right groin abscess From surgical point of view, he can be discharge once medically cleared with a drain. He can follow-up with me in the clinic for removal of the drain 1 week after discharge. VS,Valentina, I+O VS, Valentina, I+O Laboratory Tests 08/16/21 09:51 08/17/21 07:42 Vital Signs Date Time Temp Pulse Resp B/P (MAP) Pulse Ox O2 Delivery O2 Flow Rate FiO2 08/17/21 06:12 98.4 57 20 119/68 (85) 96 Room Air I&O- Last 24 Hours up to 6 AM 08/17/21 05:59 Intake Total 2280 ml Output Total 200 ml Balance 2080 ml GIL CARLSON MD Aug 17, 2021 08:50
[2021-08-17 09:19] LABS: VANCOMYCIN LEVEL TROUGH 25.4 UG/ML (10.0-20.0)
[2021-08-17 14:00] VITALS: BP 121/65
[2021-08-17] MEDS: VANCOMYCIN HCL 1,000 MG, VIAL MATE ADAPTER 1 EACH in NS 250 ML IV SCH (15:51)
[2021-08-17] MEDS: ACETAMINOPHEN TAB 650MG DOSE (2X325MG) PO PRN (20:23)
[2021-08-17 21:16] VITALS: BP 122/76
[2021-08-18] MEDS: VANCOMYCIN HCL 1,000 MG, VIAL MATE ADAPTER 1 EACH in NS 250 ML IV SCH (00:49)
[2021-08-18] MEDS: PIPERACILLIN/TAZOBACTAM SOD 4.5 GM in D5W MINI-BAG PLUS 50 ML IV SCH (03:02)
[2021-08-18 06:24] VITALS: BP 126/72
[2021-08-18] MEDS ORDERED: CEFD1CAP8 PO (07:33)
[2021-08-18] MEDS ORDERED: cefTRIAXone SOD 2 GM in D5W MINI-BAG PLUS 50 ML IV SCH (08:00)
[2021-08-18 08:27] LABS: BASO # 0.1 10^3/uL (0.0-0.2); BASO % 0.9 % (0.0-1.0); EOS # 0.3 10^3/uL (0.0-0.5); EOS % 3.5 % (0.0-3.0); HEMATOCRIT 34.1 % (42.0-52.0); HEMOGLOBIN 10.8 g/dl (13.5-17.5); LYMPH # 2.2 10^3/uL (1.5-5.0); LYMPH % 27.9 % (24.0-44.0); MEAN CORPUSCULAR HEMOGLOBIN 29.2 pg (27.0-33.0); MEAN CORPUSCULAR HGB CONC 31.7 g/dl (32.0-36.5); MEAN CORPUSCULAR VOLUME 92.2 fl (80.0-96.0); MONO # 0.7 10^3/uL (0.0-0.8); MONO % 8.3 % (2.0-8.0); NEUTROPHILS # 4.6 10^3/uL (1.5-8.5); NEUTROPHILS % 58.9 % (36.0-66.0); PLATELET COUNT, AUTOMATED 429 10^3/uL (150-450); WHITE BLOOD COUNT 7.8 10^3/uL (4.0-10.0)
[2021-08-18 08:52] LABS: BLOOD UREA NITROGEN 11 MG/DL (7-18); CALCIUM LEVEL 8.9 MG/DL (8.5-10.1); CARBON DIOXIDE LEVEL 28 MEQ/L (21-32); CHLORIDE LEVEL 107 MEQ/L (98-107); CREATININE FOR GFR 0.82 MG/DL (0.70-1.30); GLOMERULAR FILTRATION RATE > 60.0 (>60); GLUCOSE, FASTING 99 MG/DL (70-100); POTASSIUM SERUM 4.2 MEQ/L (3.5-5.1); SODIUM LEVEL 141 MEQ/L (136-145)
[2021-08-18] MEDS ORDERED: PIPERACILLIN/TAZOBACTAM SOD 4.5 GM in D5W MINI-BAG PLUS 50 ML IV SCH (09:00)
[2021-08-18] MEDS ORDERED: BICILLIN L-A 2,400,000 UNIT/4 ML SYRINGE (PENICILLIN G BENZATINE) IM ONE (10:00)
--- NOTE | 2021-08-18 12:59 | IPNPDOC ---
Subjective Date Seen The patient was seen on 08/17/21. Subjective Chief Complaint/HPI Continue to feel better. No fever or chills, right groin less painful Objective Physical Examination General Exam: Positive: Alert, Cooperative, No Acute Distress Eye Exam: Positive: PERRLA, Conjunctiva & lids normal, EOMI; Negative: Sclera icteric Chest Exam: Positive: Clear to auscultation, Normal air movement Heart Exam: Positive: Rate Normal, Regular Rhythm, Normal S1, Normal S2; Negative: Murmurs, Rubs Abdomen Exam: Positive: Normal bowel sounds, Soft, Mass (At the right groin); Negative: Tenderness, Hepatospenomegaly Extremity Exam: Positive: Normal pulses; Negative: Clubbing, Cyanosis, Edema Psych Exam: Positive: Memory Intact, Oriented x 3 Assessment /Plan Assessment 40 yo M presented with worsening R groin swelling started about 10 days ago, s/p unsuccessful I&D in the ED and general surgery clinic. Was seen in General Surgery clinic by Dr. Judd, sent to ER for additional workup, including US guide biopsy. Right groin abscess S/p US drainage on 08/15/21. Drain in place. Will go home with drain to follow up with Dr Judd in 1 week. Abscess cultures pending. Cytology negative. We will continue with Vanco and Zosyn MRSA PCR positive appreciate surgical and urology evaluation. Palmar and plantar rash syphilis serology positive, antibody positive, RPR titer 1:32 Plan/VTE VTE Prophylaxis Ordered?: Yes VS, I&O, 24H, Fishbone Vital Signs/I&O Vital Signs Date Time Temp Pulse Resp B/P (MAP) Pulse Ox O2 Delivery O2 Flow Rate FiO2 08/17/21 06:12 98.4 57 20 119/68 (85) 96 Room Air I&O- Last 24 Hours up to 6 AM 08/17/21 07:00 Intake Total 2100 ml Balance 2100 ml Laboratory Data 24H LABS Laboratory Tests 2 08/16/21 09:51: Immature Granulocyte % (Auto) 0.6, Neutrophils (%) (Auto) 65.2, Lymphocytes (%) (Auto) 20.9L, Monocytes (%) (Auto) 10.0H, Eosinophils (%) (Auto) 2.7, Basophils (%) (Auto) 0.6, Neutrophils # (Auto) 5.6, Lymphocytes # (Auto) 1.8, Monocytes # (Auto) 0.9H, Eosinophils # (Auto) 0.2, Basophils # (Auto) 0.1, Nucleated Red Blood Cells % (auto) 0.0, Anion Gap 1L, Glomerular Filtration Rate > 60.0, Calcium Level 8.3L, C-Reactive Protein, Quantitative 12.20H, Vancomycin Level Trough 14.7 CBC/BMP Laboratory Tests 08/16/21 09:51 Microbiology Microbiology 08/15/21 Gram Stain - Final, Resulted 08/15/21 Abscess Culture, Resulted Pending 08/14/21 Blood Culture - Preliminary, Resulted No Growth after 48 hours. All Specime... 08/14/21 Blood Culture - Preliminary, Resulted No Growth after 48 hours. All Specime... Yahaira Betancourt MD Aug 17, 2021 07:54
--- NOTE | 2021-08-18 13:12 | DS.PDOC ---
Discharge Summary General Date of Admission Aug 14, 2021 at 21:28 Date of Discharge 08/18/21 Discharge Summary PROCEDURES PERFORMED DURING STAY: Ultrasound guided drainage of right groin abscess with placement of indwelling drain. DISCHARGE DIAGNOSES: Right groin abscess Syphilis COMPLICATIONS/CHIEF COMPLAINT: Abscess Of Right Groin. Cellulitis. HOSPITAL COURSE: 40 yo M presented with worsening R groin swelling started about 10 days ago, s/p unsuccessful I&D in the ED and general surgery clinic. Was seen in General Surgery clinic by Dr. Judd, sent to ER for additional workup, including US guide biopsy. Patient was found to have a right groin abscess from Streptococcus pyogenes. Patient underwent ultrasound-guided and drainage with placement of indwelling drain. Right groin abscess S/p US drainage on 08/15/21. Drain in place. Will go home with drain to follow up with Dr Judd in 1 week. Abscess cultures streptoccocus pyogenes Cytology negative. We will give ceftriaxone 1 dose and then continue on cefdinir on discharge. Patient will be discharged with drain in place. Follow-up with surgery in 1 week for drain removal. 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 ALLERGIES: Please see below. PHYSICAL EXAMINATION ON DISCHARGE: VITAL SIGNS: Please see below. General Exam: Positive: Alert, Cooperative, No Acute Distress Eye Exam: Positive: PERRLA, Conjunctiva & lids normal, EOMI; Negative: Sclera icteric Chest Exam: Positive: Clear to auscultation, Normal air movement Heart Exam: Positive: Rate Normal, Regular Rhythm, Normal S1, Normal S2; Negative: Murmurs, Rubs Abdomen Exam: Positive: Normal bowel sounds, Soft, Mass (At the right groin); Negative: Tenderness, Hepatosplenomegaly Extremity Exam: Positive: Normal pulses; Negative: Clubbing, Cyanosis, Edema Psych Exam: Positive: Memory Intact, Oriented x 3 LABORATORY DATA: Please see below. ACTIVITY: [As tolerated]. DIET: Regular DISPOSITION: 01 Home, Self-Care. DISCHARGE INSTRUCTIONS: Follow-up with Dr. Patel in 1 week [address] drain in place and keep it dry DISCHARGE CONDITION: [Stable]. TIME SPENT ON DISCHARGE: 35 minutes. Vital Signs/I&Os Vital Signs Date Time Temp Pulse Resp B/P (MAP) Pulse Ox O2 Delivery O2 Flow Rate FiO2 08/18/21 06:24 97.0 72 20 126/72 (90) 97 Room Air I&O- Last 24 Hours up to 6 AM 08/18/21 06:00 Intake Total 2880 ml Output Total 40 ml Balance 2840 ml Laboratory Data Labs 24H Laboratory Tests 2 08/17/21 14:32: Vancomycin Level Trough 12.8 08/18/21 07:40: Immature Granulocyte % (Auto) 0.5, Neutrophils (%) (Auto) 58.9, Lymphocytes (%) (Auto) 27.9, Monocytes (%) (Auto) 8.3H, Eosinophils (%) (Auto) 3.5H, Basophils (%) (Auto) 0.9, Neutrophils # (Auto) 4.6, Lymphocytes # (Auto) 2.2, Monocytes # (Auto) 0.7, Eosinophils # (Auto) 0.3, Basophils # (Auto) 0.1, Nucleated Red Blood Cells % (auto) 0.0, Anion Gap 6L, Glomerular Filtration Rate > 60.0, Calcium Level 8.9 CBC/BMP Laboratory Tests 08/18/21 07:40 Microbiology Microbiology 08/15/21 Gram Stain - Final, Complete 08/15/21 Abscess Culture - Final, Complete Streptococcus Pyogenes Grp A 08/14/21 Blood Culture - Preliminary, Resulted No Growth after 72 hours. All specime... 08/14/21 Blood Culture - Preliminary, Resulted No Growth after 72 hours. All specime... Discharge Medications Scheduled Cefdinir (Cefdinir) 300 Mg Capsule, 1 CAP PO BID Naproxen Sodium (Aleve) 220 Mg Capsule, 440 MG PO BID, (Reported) Allergies Coded Allergies: latex (Verified Allergy, Unknown, 08/12/21) Yahaira Betancourt MD Aug 18, 2021 13:12
== END 2021-08-18 12:00 | disposition home or self-care (01) | DRG 603 ==
LOC: M ED 16:56 → EEVIPCON 21:28 → M ED INP 21:28 → M MS5PR 08-15 01:19
PROVIDERS: ADMIT Family Medicine; ATTEND Family Medicine
PROC: 0J9C30Z Drainage of Pelvic Region Subcutaneous Tissue and Fascia with Drainage Device, Percutaneous Approach (ICD-10-PCS; principal; 2021-08-15 14:00)
DX: L02.214 Cutaneous abscess of groin (principal); L03.314 Cellulitis of groin; F17.200 Nicotine dependence, unspecified, uncomplicated; R21 Rash and other nonspecific skin eruption; Z91.040 Latex allergy status; Z20.822 Contact with and (suspected) exposure to COVID-19; Z79.899 Other long term (current) drug therapy

== ENCOUNTER 2021-11-12 16:29 | Emergency (ER) | payer OTHER ==
[~2021-11-12] VITALS: Ht 188 cm; Wt 95.5 kg
[~2021-11-12 16:29] MED LIST changes: +CEFD300C41 PO
[2021-11-12 16:31] VITALS: BP 173/95
== END 2021-11-12 19:17 | disposition home or self-care (01) ==
LOC: M ED 16:29
DX: S63.521A Sprain of radiocarpal joint of right wrist, initial encounter (principal); X58.XXXA Exposure to other specified factors, initial encounter; Y92.410 Unspecified street and highway as the place of occurrence of the external cause; Y93.01 Activity, walking, marching and hiking; Y99.9 Unspecified external cause status; F17.200 Nicotine dependence, unspecified, uncomplicated; Z91.040 Latex allergy status

== ENCOUNTER 2022-03-23 19:49 | Emergency (ER) | payer OTHER ==
[~2022-03-23] VITALS: Ht 188 cm; Wt 87.7 kg
[2022-03-23] MEDS ORDERED: ACET32TAB PO (20:10)
[2022-03-23] MEDS ORDERED: NAPR-837 PO (21:23)
[2022-03-23 21:55] VITALS: BP 127/58
== END 2022-03-23 21:58 | disposition home or self-care (01) ==
LOC: M ED 19:49
DX: M77.02 Medial epicondylitis, left elbow (principal); F17.200 Nicotine dependence, unspecified, uncomplicated; Z91.040 Latex allergy status

== ENCOUNTER 2022-05-25 19:05 | Emergency (ER) | payer OTHER ==
[~2022-05-25] VITALS: Ht 188 cm; Wt 88.0 kg
[~2022-05-25 19:05] MED LIST changes: +ACET32TAB PO; +NAPR-837 PO
[2022-05-25 19:07] VITALS: BP 151/86
[2022-05-25] MEDS ORDERED: IBUP200C29 PO (19:21)
== END 2022-05-25 22:52 | disposition left against medical advice (07) ==
LOC: M ED 19:05
DX: Z53.21 Procedure and treatment not carried out due to patient leaving prior to being seen by health care provider (principal)

== ENCOUNTER 2022-11-14 17:19 | Emergency (ER) | payer OTHER ==
[~2022-11-14] VITALS: Ht 188 cm; Wt 87.0 kg
[~2022-11-14 17:19] MED LIST changes: +IBUP200C29 PO
[2022-11-14] MEDS ORDERED: ONDANSETRON 4MG 2ML VIAL IV ONE (18:05)
[2022-11-14] MEDS ORDERED: NS 1,000 ML IV ONE ×2 (18:05→22:10)
[2022-11-14 18:58] LABS: BASO % 0.2 % (0.0-1.0); EOS % 0.2 % (0.0-3.0); HEMATOCRIT 43.9 % (42.0-52.0); HEMOGLOBIN 14.7 g/dl (13.5-17.5); LYMPH # 1.6 10^3/uL (1.5-5.0); LYMPH % 11.1 % (24.0-44.0); MEAN CORPUSCULAR HGB CONC 33.5 g/dl (32.0-36.5); MEAN CORPUSCULAR VOLUME 95.4 fl (80.0-96.0); MONO # 0.9 10^3/uL (0.0-0.8); MONO % 6.5 % (2.0-8.0); NEUTROPHILS # 11.8 10^3/uL (1.5-8.5); NEUTROPHILS % 81.5 % (36.0-66.0); PLATELET COUNT, AUTOMATED 229 10^3/uL (150-450); WHITE BLOOD COUNT 14.5 10^3/uL (4.0-10.0)
[2022-11-14 19:22] LABS: LIPASE 23 U/L (12-53)
[2022-11-14 19:27] LABS: ALBUMIN 4.3 G/DL (3.2-5.2); ALKALINE PHOSPHATASE 62 U/L (46-116); ALT/SGPT 33 U/L (7.0-40); AST/SGOT 54 U/L (<34); BILIRUBIN,TOTAL 0.5 MG/DL (0.3-1.2); BLOOD UREA NITROGEN 16 MG/DL (9-23); CALCIUM LEVEL 9.3 MG/DL (8.5-10.1); CARBON DIOXIDE LEVEL 28 MMOL/L (20-31); CHLORIDE LEVEL 103 MMOL/L (98-107); CREATININE FOR GFR 0.95 MG/DL (0.70-1.30); GLOMERULAR FILTRATION RATE > 60.0 (>60); GLUCOSE, FASTING 104 MG/DL (60-100); POTASSIUM SERUM 4.1 MMOL/L (3.5-5.1); SODIUM LEVEL 139 MMOL/L (136-145); TOTAL PROTEIN 7.4 G/DL (5.7-8.2)
[2022-11-14] MEDS ORDERED: ISOVUE-370 76% 100ML VIAL As Ordered ONE (19:35)
[2022-11-14] MEDS ORDERED: METOCLOPRAMIDE INJ 10MG/2ML VIAL IV ONE (20:35)
[2022-11-14] MEDS ORDERED: KETOROLAC 30 MG/ML 1ML VIAL IV ONE (20:35)
[2022-11-14] MEDS ORDERED: PIPERACILLIN/TAZOBACTAM SOD 4.5 GM in D5W MINI-BAG PLUS 50 ML IV ONE (21:00)
[2022-11-14 23:30] VITALS: BP 114/65
[2022-11-15] MEDS ORDERED: ONDA4TAB6 PO (00:15)
[2022-11-15] MEDS ORDERED: AMOX875T2 PO (00:15)
== END 2022-11-15 00:28 | disposition home or self-care (01) ==
LOC: M ED 17:19
DX: K35.80 Unspecified acute appendicitis (principal); A09 Infectious gastroenteritis and colitis, unspecified; F17.200 Nicotine dependence, unspecified, uncomplicated; F10.10 Alcohol abuse, uncomplicated; Z91.040 Latex allergy status; Z79.2 Long term (current) use of antibiotics; Z79.83 Long term (current) use of bisphosphonates
CPT/HCPCS: 74177; 80053; 83690; 85025; 96361; 96374; 96375; 99284; J2405; J2543; J2765; Q9967

== ENCOUNTER 2024-06-29 16:39 | Emergency (ER) | payer OTHER ==
[~2024-06-29] VITALS: Ht 188 cm; Wt 95.9 kg
[~2024-06-29 16:39] MED LIST changes: +AMOX875T2 PO; +CEFD1CAP9 PO; -CEFD300C41 PO; +ONDA-282 PO
[2024-06-29] MEDS ORDERED: ESTR20VI2 (16:56)
[2024-06-29] MEDS ORDERED: SPIR50TA4 (16:56)
[2024-06-29] MEDS ORDERED: PROG1CAP8 (16:56)
[2024-06-29] MEDS ORDERED: SPIR100T3 (16:56)
[2024-06-29 18:40] LABS: BASO # 0.1 10^3/uL (0.0-0.2); BASO % 0.2 % (0.0-1.0); EOS # 0.2 10^3/uL (0.0-0.5); EOS % 0.7 % (0.0-3.0); HEMATOCRIT 40.6 % (42.0-52.0); HEMOGLOBIN 13.6 g/dl (13.5-17.5); LYMPH # 3.1 10^3/uL (1.5-5.0); LYMPH % 14.2 % (24.0-44.0); MEAN CORPUSCULAR HEMOGLOBIN 32.6 pg (27.0-33.0); MEAN CORPUSCULAR HGB CONC 33.5 g/dl (32.0-36.5); MEAN CORPUSCULAR VOLUME 97.4 fl (80.0-96.0); MONO # 1.8 10^3/uL (0.0-0.8); MONO % 8.3 % (2.0-8.0); NEUTROPHILS # 16.6 10^3/uL (1.5-8.5); NEUTROPHILS % 75.8 % (36.0-66.0); PLATELET COUNT, AUTOMATED 248 10^3/uL (150-450); RED BLOOD COUNT 4.17 10^6/uL (4.30-6.10); WHITE BLOOD COUNT 21.9 10^3/uL (4.0-10.0)
[2024-06-29 18:47] LABS: ERYTHROCYTE SEDIMENTATION RATE 24 mm/hr (0-15)
[2024-06-29 19:03] LABS: BLOOD UREA NITROGEN 15 MG/DL (9-23); CALCIUM LEVEL 10.2 MG/DL (8.5-10.1); CARBON DIOXIDE LEVEL 29 MMOL/L (20-31); CHLORIDE LEVEL 106 MMOL/L (98-107); CREATININE FOR GFR 0.94 MG/DL (0.70-1.30); GLOMERULAR FILTRATION RATE > 60.0 (>60); GLUCOSE, FASTING 102 MG/DL (60-100); POTASSIUM SERUM 4.5 MMOL/L (3.5-5.1); SODIUM LEVEL 139 MMOL/L (136-145)
[2024-06-29 19:56] VITALS: BP 146/74; TEMP 98.2; O2SAT 99
== END 2024-06-29 20:16 | disposition left against medical advice (07) ==
LOC: M ED 16:39
DX: Z53.21 Procedure and treatment not carried out due to patient leaving prior to being seen by health care provider (principal)

== ENCOUNTER 2024-07-02 20:36 | Emergency (ER) | payer OTHER ==
[~2024-07-02] VITALS: Ht 188 cm; Wt 90.0 kg
[~2024-07-02 20:36] MED LIST changes: +ESTR20VI2; +PROG1CAP8; +SPIR100T3; +SPIR50TA4
[2024-07-02 20:46] VITALS: BP 147/65; TEMP 97.6; O2SAT 97
[2024-07-02] MEDS ORDERED: cefTRIAXone SOD 1GM VIAL IM ONE (22:45)
[2024-07-02] MEDS ORDERED: CLEO300C2 PO (22:50)
[2024-07-02] MEDS: LIDOCAINE 1% SDV 5ML VIAL DILUENT ONE (23:12)
[2024-07-02] MEDS: cefTRIAXone SOD 1GM VIAL IM ONE (23:13)
== END 2024-07-02 23:28 | disposition home or self-care (01) ==
LOC: M ED 20:36
DX: L02.415 Cutaneous abscess of right lower limb (principal); L03.115 Cellulitis of right lower limb
CPT/HCPCS: 96372; 99283; J0696